=== PATIENT | female | born 1960 | race Caucasian/White ===

== ENCOUNTER → 2017-01-19 | Outpatient (CLI) | payer OTHER ==
--- NOTE | 2017-01-20 11:31 | MM ---
Reason for exam: screening (asymptomatic). Last mammogram was performed 1 year ago. History: Patient is postmenopausal. Family history of breast cancer in maternal aunt, breast cancer in sister at age 72, and breast cancer in cousin at age 55. Physical Findings: A clinical breast exam by your physician is recommended on an annual basis and results should be correlated with mammographic findings. MG 3D Screening Mammo W/Cad Bilateral CC and MLO view(s) were taken. Prior study comparison: January 16, 2016, bilateral MG 3d diag mammo w/cad [facility]. July 11, 2015, right breast MG diagnostic mammo RT w CAD. The breast tissue is heterogeneously dense. This may lower the sensitivity of mammography. There is chronic nodularity bilaterally. No significant changes when compared with prior studies. ASSESSMENT: Benign, BI-RAD 2 RECOMMENDATION: Routine screening mammogram of both breasts in 1 year.
== END | disposition home or self-care (01) ==
LOC: RADMAMWWP 07:08
PROVIDERS: ATTEND Family Medicine
DX: Z12.31 Encounter for screening mammogram for malignant neoplasm of breast (principal)
CPT/HCPCS: 77063; G0202

== ENCOUNTER → 2018-02-25 | Outpatient (CLI) | payer OTHER ==
--- NOTE | 2018-02-25 13:40 | US ---
EXAMINATION TYPE: US venous doppler duplex LE DATE OF EXAM: 02/25/2018 1:30 PM COMPARISON: NONE CLINICAL HISTORY: R60.0 Edema of Lower legs. Right calf pain x 6 months. History of recent plane tiffanie el. SIDE PERFORMED: Right TECHNIQUE: The lower extremity deep venous system is examined utilizing real time linear array sonog danii with graded compression, doppler sonography and color-flow sonography. VESSELS IMAGED: Common Femoral Vein Deep Femoral Vein Greater Saphenous Vein * Femoral Vein Popliteal Vein Small Saphenous Vein * Proximal Calf Veins (* superficial vessels) Right Leg: Negative for DVT Left Leg: Negative for DVT Grayscale, color doppler, spectral doppler imaging performed of the deep veins of the right lower ext remity. There is normal flow, compressibility, vascular waveforms. IMPRESSION: No ultrasound evidence for acute DVT in the right lower extremity.
== END | disposition home or self-care (01) ==
LOC: RADUSWWP 12:47
PROVIDERS: ATTEND Family Medicine
DX: R60.0 Localized edema (principal)
CPT/HCPCS: 93970

== ENCOUNTER 2018-03-02 17:22 | Emergency (ER) | payer OTHER ==
[2018-03-02 17:30] VITALS: RESP 18
[2018-03-02] MEDS ORDERED: Acetaminophen-Codeine 300-30mg TAB PO STA (17:43)
--- NOTE | 2018-03-02 17:50 | ED ---
General Adult HPI - General Chief complaint: Extremity Injury, Lower Stated complaint: rt knee injury Time Seen by Provider: 03/02/18 17:32 Source: patient, RN notes reviewed Mode of arrival: wheelchair Limitations: no limitations - History of Present Illness Initial comments: 57-year-old female presents to the emergency department for a chief complaint of right knee pain x 1 hour. Patient states she was standing on a chair to reach the upper counter when she went to lift her right leg and felt and heard a pop. Patient states she has had significant pain in the right knee since that time. Patient denies falling or hitting her head. Patient states she is unable to bear weight on the knee or flex or extend the knee without pain. Patient states she took 2 ibuprofen with minimal relief. Patient states she has had pain in the right lower extremity for the past 3-4 months and and no ultrasound was performed 5 days ago which ruled out a DVT. Patient states she also does have physical and all blood work was normal as per 5 days ago. This generalized pain in her right lower extremity has not worsened in the past week except for the pain in her anterior knee from today. Patient denies shortness of breath or chest pain. Patient states her ankle is also tender. - Related Data Previous Rx's Medication Instructions Recorded Acetaminophen-Codeine 300-30mg 1 tab PO Q8H PRN #10 tablet 03/02/18 [Tylenol #3] Allergies Allergy/AdvReac Type Severity Reaction Status Date / Time No Known Allergies Allergy Verified 03/02/18 17:31 Review of Systems ROS Statement: Those systems with pertinent positive or pertinent negative responses have been documented in the HPI. ROS Other: All systems not noted in ROS Statement are negative. Past Medical History Past Medical History: No Reported History History of Any Multi-Drug Resistant Organisms: None Reported Past Surgical History: Orthopedic Surgery Additional Past Surgical History / Comment(s): LT knee surgery Past Psychological History: No Psychological Hx Reported Smoking Status: Never smoker Past Alcohol Use History: Occasional Past Drug Use History: None Reported General Exam Limitations: no limitations Head exam: Present: atraumatic, normocephalic, normal inspection ENT exam: Present: normal exam, mucous membranes moist Respiratory exam: Present: normal lung sounds bilaterally. Absent: respiratory distress, wheezes, rales, rhonchi, stridor Cardiovascular Exam: Present: regular rate Extremities exam: Present: tenderness (Tenderness of the right lower extremity from knee to ankle.), normal capillary refill (less than 2 seconds in RLE), pedal edema (patient has 1+ bilat edema in LE.), other (Patient has full sensation and range of motion of the right foot. Patient has positive pedal pulses and posterior tibial pulses bilaterally with Doppler.). Absent: full ROM (Limited flexion and extension of the right knee.), joint swelling, calf tenderness Course Vital Signs 03/02/18 03/02/18 17:31 18:48 Temperature 98 F 98.1 F Pulse Rate 86 61 Respiratory 18 18 Rate Blood Pressure 189/95 169/70 O2 Sat by Pulse 99 98 Oximetry Medical Decision Making - Medical Decision Making 57-year-old female presents the emergency department with a chief complaint of right knee pain. Patient injured the knee earlier today when she stepped onto a chair and felt a pop in the right knee. Patient had a negative ultrasound for DVT last week because of generalized pain in the right lower extremity which has been ongoing for months. Patient states the pain in her right lower extremity is no worse than it was last week besides for the pain in her anterior knee joint from the injury today. She has taken ibuprofen today which helped minimally. Patient was given a Tylenol 3 in the emergency department which did help her feel better. X-ray of the right ankle shows soft tissue swelling with no evidence of acute fracture or dislocation. X-ray of the right knee demonstrates no acute fracture or dislocation. Discussed ordering an ultrasound to rule out DVT with patient. Due to negative ultrasound 5 days ago and no exacerbation of pain or swelling besides from the pop in the knee joint today patient will return if pain/swelling increases in the RLE for ultrasound. Patient will follow up with orthopedics in one to 2 days. She will also follow up with primary care. 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 She will return to the emergency Department if she notices a worsening of symptoms. Disposition Clinical Impression: Knee pain, acute Disposition: HOME SELF-CARE Condition: Good Instructions: Knee Pain (ED), RICE Therapy (ED) Additional Instructions: Please take ibuprofen and Tylenol for pain relief. Please use rice therapy as discussed. Instructions are included in the discharge paperwork. Please follow -up with orthopedics in one to 2 days. Please follow up with primary care as well. Prescriptions: Acetaminophen-Codeine 300-30mg [Tylenol #3] 1 tab PO Q8H PRN #10 tablet PRN Reason: Pain Referrals: Martin Yanez MD [Primary Care Provider] - 1-2 days Bárbara Helton PAC [PHYSICIAN SYNTHETIC STAPLE EXTRUDER] - 1-2 days Time of Disposition: 18:48
--- NOTE | 2018-03-02 18:23 | XR ---
EXAMINATION TYPE: XR knee complete RT DATE OF EXAM: 03/02/2018 CLINICAL HISTORY: Right knee pain TECHNIQUE: Three views of the right knee are obtained. COMPARISON: None. FINDINGS: There is no acute fracture/dislocation evident in right knee. Minimal medial compartment j oint space narrowing is noted. Small ossified is seen near the tibial spine. The bicompartmental join t spaces appear within normal limits. The overlying soft tissue appears unremarkable. IMPRESSION: There is no acute fracture or dislocation in the right knee.
--- NOTE | 2018-03-02 18:25 | XR ---
EXAMINATION TYPE: XR ankle complete RT DATE OF EXAM: 03/02/2018 CLINICAL HISTORY: Right ankle pain TECHNIQUE: Frontal, lateral and oblique images of the right ankle are obtained. COMPARISON: None. FINDINGS: There is soft tissue swelling over the ankle most pronounced over the lateral malleolus. T here is no acute fracture/dislocation evident in the right ankle. The ankle mortise appears within n ormal limits. Small Achilles and plantar enthesophytes are noted. IMPRESSION: Diffuse soft tissue swelling of the right ankle most pronounced over the lateral malleolu s with no evidence of acute fracture or dislocation.
[2018-03-02 18:49] VITALS: BP 169/70; PULSE 61; TEMP 98.1
== END 2018-03-02 19:05 | disposition home or self-care (01) ==
LOC: EC 17:22
DX: M25.561 Pain in right knee (principal); M25.571 Pain in right ankle and joints of right foot
CPT/HCPCS: 99284

== ENCOUNTER → 2018-10-20 | Outpatient (CLI) | payer OTHER ==
[2018-10-20 16:50] LABS: Albumin 4.2 g/dL (3.80-4.90); Albumin/Globulin Ratio 1.91 (1.20-2.10); Anion Gap 6.1 mmol/L (4.00-12.00); Calcium 9.4 mg/dL (8.7-10.3); Carbon Dioxide 28.9 mmol/L (21.6-31.8); Globulin 2.2 g/dL (2.1-3.7); Potassium 4.5 mmol/L (3.5-5.5); Total Bilirubin 0.8 mg/dL (0.2-1.2); Total Protein 6.4 g/dL (6.2-8.2)
[2018-10-20 16:57] LABS: T4, Free (Free Thyroxine) 1.2 ng/dL (0.80-1.80)
== END ==
LOC: LABWHC1 08:04
PROVIDERS: ATTEND Nurse Practitioner Adult Health
DX: Z00.00 Encounter for general adult medical examination without abnormal findings (principal)
CPT/HCPCS: 36415; 80053; 80061; 84439; 84443

== ENCOUNTER → 2018-11-22 | Outpatient (CLI) | payer OTHER ==
--- NOTE | 2018-11-25 11:09 | MM ---
Reason for exam: screening (asymptomatic). Last mammogram was performed 1 year and 10 months ago. History: Patient is postmenopausal and has history of other cancer at age 58. Family history of breast cancer in maternal aunt, breast cancer in sister at age 72, and breast cancer in cousin at age 55. Physical Findings: A clinical breast exam by your physician is recommended on an annual basis and results should be correlated with mammographic findings. MG Screening Mammo w CAD Bilateral CC and MLO view(s) were taken. Prior study comparison: January 19, 2017, bilateral MG 3d screening mammo w/cad. January 16, 2016, bilateral MG 3d diag mammo w/cad [facility]. Finding: There is a 11 mm circumscribed oval mass in the upper outer quadrant, anterior position of the left breast. New finding and more defined. ASSESSMENT: Incomplete: need additional imaging evaluation, BI-RAD 0 RECOMMENDATION: Ultrasound of the left breast. [facility] will attempt to contact patient to return for ultrasound.
== END | disposition home or self-care (01) ==
LOC: RADMAMWWP 09:39
PROVIDERS: ATTEND Family Medicine
DX: Z12.31 Encounter for screening mammogram for malignant neoplasm of breast (principal)
CPT/HCPCS: 77067

== ENCOUNTER → 2018-12-09 | Outpatient (CLI) | payer OTHER ==
--- NOTE | 2018-12-12 07:20 | USB ---
Reason for exam: additional evaluation requested from abnormal screening. History: Patient is postmenopausal and has history of other cancer at age 58. Family history of breast cancer in maternal aunt, breast cancer in sister at age 72, and breast cancer in cousin at age 55. Physical Findings: Nurse did not find any significant physical abnormalities on exam. US Breast Workup Limited LT Left limited breast ultrasound including focal area of concern, retroareolar and axilla demonstrates a 11 x 5 x 12 mm lobular well circumscribed cystic lesion at 1 o'clock. These results were verbally communicated with the patient and result sheet given to the patient on 12/09/18. ASSESSMENT: Probably benign, BI-RAD 3 RECOMMENDATION: Follow-up diagnostic mammogram and ultrasound of the left breast in 6 months.
== END | disposition home or self-care (01) ==
LOC: RADUSWWP 09:36
PROVIDERS: ATTEND Family Medicine
DX: R92.8 Other abnormal and inconclusive findings on diagnostic imaging of breast (principal)

== ENCOUNTER → 2019-08-29 | Outpatient (CLI) | payer OTHER ==
--- NOTE | 2019-08-29 10:47 | MM ---
Reason for exam: follow-up at short interval from prior study. Last mammogram was performed 9 months ago. History: Patient is postmenopausal and has history of other cancer at age 58. Family history of breast cancer in maternal aunt, breast cancer in sister at age 72, and breast cancer in cousin at age 55. Physical Findings: Nurse did not find any significant physical abnormalities on exam. MG Diagnostic Mammo LT w CAD CC and MLO view(s) were taken of the left breast. Prior study comparison: November 22, 2018, bilateral MG screening mammo w CAD. January 19, 2017, bilateral MG 3d screening mammo w/cad. The breast tissue is heterogeneously dense. This may lower the sensitivity of mammography. Finding: There is a typically benign circumscribed round oval masses at middle depth of the left breast, similar to priors back to 2016. Ultrasound is ordered as a follow up exam. No new suspicious abnormality. These results were verbally communicated with the patient and result sheet given to the patient on 08/29/19. ASSESSMENT: Benign, BI-RAD 2 RECOMMENDATION: Routine screening mammogram of both breasts in 1 year.
--- NOTE | 2019-08-29 10:50 | USB ---
Reason for exam: follow-up at short interval from prior study. History: Patient is postmenopausal and has history of other cancer at age 58. Family history of breast cancer in maternal aunt, breast cancer in sister at age 72, and breast cancer in cousin at age 55. US Breast Limited LT Left limited breast ultrasound including focal area of concern, retroareolar and axilla demonstrates a 11 x 4 x 9mm lobular, cystic lesion at 1 o'clock, benign, correspond to the mammographic finding, a 5 x 3 x 4mm oval, hypoechoic lesion at 3 o'clock, 6 month follow up recommended, a 3 x 3 x 3mm oval, hypoechoic lesion at 3 o'clock, 6 month follow up recommended and a 7 x 3 x 7mm oval, solid, isoechoic lesion at 12 o'clock, 6 month follow up recommended. Scanned 12-3 o'clock. These results were verbally communicated with the patient and result sheet given to the patient on 08/29/19. ASSESSMENT: Probably benign, BI-RAD 3 RECOMMENDATION: Ultrasound of the left breast in 6 months.
== END | disposition home or self-care (01) ==
LOC: RADMAMWWP 08:53
PROVIDERS: ATTEND Family Medicine
DX: R92.8 Other abnormal and inconclusive findings on diagnostic imaging of breast (principal)
CPT/HCPCS: 77065

== ENCOUNTER → 2019-09-14 | Outpatient (CLI) | payer OTHER ==
--- NOTE | 2019-09-14 08:22 | US ---
EXAMINATION TYPE: US transvaginal DATE OF EXAM: 09/14/2019 COMPARISON: NONE CLINICAL HISTORY: D25.9 uterine leiomyoma. History uterine fibroids, patient states no recent pelvic pain or bleeding, 3, para 3, history of tubal ligation. TECHNIQUE: Transvaginal exam only per ordering physician. Date of LMP: 15 years ago EXAM MEASUREMENTS: Uterus: 6.8 x 2.8 x 4.0 cm Endometrial Stripe: 0.3 cm Right Ovary: not seen Left Ovary: not seen 1. Uterus: heterogeneous with 1.8 x 1.6 x 1.8cm hypoechoic area, probable fibroid 2. Endometrium: visualized portions appear wnl 3. Right Ovary: not seen 4. Left Ovary: not seen 5. Bilateral Adnexa: wnl 6. Posterior cul-de-sac: wnl IMPRESSION: 1. Suspected uterine fibroid.
== END | disposition home or self-care (01) ==
LOC: RADUSWWP 07:37
PROVIDERS: ATTEND Nurse Practitioner Adult Health
DX: D25.9 Leiomyoma of uterus, unspecified (principal); Z80.49 Family history of malignant neoplasm of other genital organs
CPT/HCPCS: 76830; 86304

== ENCOUNTER → 2019-11-25 | Outpatient (CLI) | payer OTHER ==
--- NOTE | 2019-11-25 11:43 | MM ---
Reason for exam: additional evaluation requested from prior study. Last mammogram was performed 3 months ago. History: Patient is postmenopausal and has history of other cancer at age 58. Family history of breast cancer in maternal aunt, breast cancer in sister at age 72, and breast cancer in cousin at age 55. Physical Findings: Nurse did not find any significant physical abnormalities on exam. MG Diagnostic Mammo w CAD [facility] Bilateral CC and MLO view(s) were taken. Prior study comparison: August 29, 2019, left breast MG diagnostic mammo LT w CAD. November 22, 2018, bilateral MG screening mammo w CAD. The breast tissue is heterogeneously dense. This may lower the sensitivity of mammography. There is chronic nodularity in the right breast. There is no discrete abnormality. These results were verbally communicated with the patient and result sheet given to the patient on 11/25/19. ASSESSMENT: Benign, BI-RAD 2 RECOMMENDATION: Routine screening mammogram of both breasts in 1 year.
== END | disposition home or self-care (01) ==
LOC: RADMAMWWP 10:57
PROVIDERS: ATTEND Family Medicine
DX: R92.8 Other abnormal and inconclusive findings on diagnostic imaging of breast (principal)
CPT/HCPCS: 77066

== ENCOUNTER → 2021-01-08 | Outpatient (CLI) | payer OTHER ==
--- NOTE | 2021-01-08 13:27 | ECHOF ---
Referral Reason:R01.1 cardiac murmur MEASUREMENTS -------- HEIGHT: 162.6 cm WEIGHT: 94.8 kg BP: RVIDd: 2.9 cm (< 3.3) IVSd: 1.1 cm (0.6 - 1.1) LVIDd: 3.9 cm (3.9 - 5.3) LVPWd: 1.7 cm (0.6 - 1.1) IVSs: 1.5 cm LVIDs: 2.7 cm LVPWs: 1.5 cm LA Diam: 4.2 cm (2.7 - 3.8) LAESV Index (A-L): 28.41 ml/m Ao Diam: 3.0 cm (2.0 - 3.7) MV EXCURSION: 16.312 mm (> 18.000) MV EF SLOPE: 91 mm/s (70 - 150) EPSS: 0.3 cm MV E Virgil: 0.50 m/s MV DecT: 293 ms MV A Virgil: 0.80 m/s MV E/A Ratio: 0.62 RAP: 5.00 mmHg RVSP: 16.53 mmHg FINDINGS -------- Sinus rhythm. This was a technically adequate study. The left ventricular size is normal. Left ventricular wall thickness is normal. Overall left vent ricular systolic function is normal with, an EF between 55 - 60 %. The right ventricle is normal in size. Normal LA size by volume 22+/-6 ml/m2. The right atrial size is normal. The aortic valve is trileaflet, and appears structurally normal. No aortic stenosis or regurgitation. The mitral valve is normal. Mild mitral regurgitation is present. The tricuspid valve appears structurally normal. Mild tricuspid regurgitation present. Right vent ricular systolic pressure is normal at < 35 mmHg. There is no pulmonic regurgitation present. The aortic root size is normal. There is no pericardial effusion. CONCLUSIONS -------- 1. Left ventricular wall thickness is normal. 2. Overall left ventricular systolic function is normal with, an EF between 55 - 60 %. 3. Normal LA size by volume 22+/-6 ml/m2. 4. The aortic valve is trileaflet, and appears structurally normal. No aortic stenosis or regurgitati on. 5. Mild mitral regurgitation is present. 6. Mild tricuspid regurgitation present. 7. There is no pericardial effusion. X RAY NURSE: Little Cohen RDCS
== END | disposition home or self-care (01) ==
LOC: RADECHMAIN 10:45
PROVIDERS: ATTEND Family Medicine
DX: I08.1 Rheumatic disorders of both mitral and tricuspid valves (principal)
CPT/HCPCS: 93306

== ENCOUNTER 2021-01-25 10:16 | Day surgery (SDC) | payer OTHER ==
[2021-01-23 12:02] VITALS: BMI 36.0
[~2021-01-25 10:16] MED LIST: LACTATED RINGERS 1,000 ML IV SCH
[2021-01-25 11:02] VITALS: TEMP 98
[2021-01-25] MEDS ORDERED: LIDOCAINE 1% (10MG/ML) FOR IV START INTRADERMA ONE (11:03)
[2021-01-25] MEDS ORDERED: PROPOFOL 10 MG/ML 20 ML VIAL IV ONE (11:11)
[2021-01-25] MEDS ORDERED: LIDOCAINE 1% INJ 10MG/ML (20 ML MDV) ONE (11:11)
--- NOTE | 2021-01-25 11:24 | P.PCN ---
Date of Procedure: 01/25/21 Procedure(s) Performed: BRIEF HISTORY: Patient is a 60-year-old pleasant white female scheduled for an elective colonoscopy as a part of evaluation of prior history of colon polyps. Last colonoscopy was 8 years ago. PROCEDURE PERFORMED: Colonoscopy. PREOPERATIVE DIAGNOSIS: History of colon polyps. IV sedation per Anesthesia. PROCEDURE: After informed consent was obtained, the patient, was brought into the endoscopy unit. IV sedation was administered by Anesthesia under continuous monitoring. Digital rectal examination was normal. Initially the Olympus CF-160 flexible video colonoscope was then inserted in the rectum, gradually advanced into the cecum without any difficulty. Careful examination was performed as the scope was gradually being withdrawn. Ileocecal valve and the appendiceal orifice were visualized and appeared normal. Prep was excellent. Mucosa of the cecum, ascending colon, transverse colon, descending colon, sigmoid colon, and rectum appeared normal. Scattered sigmoid diverticulosis. Retroflexion was performed in the rectum and no lesions were seen. The patient tolerated the procedure well. IMPRESSION: Normal-appearing colon from rectum to cecum no evidence of colorectal neoplasia . Scattered sigmoid diverticulosis. RECOMMENDATIONS: Findings of this examination were discussed with the patient as well as her family. She was advised to have a repeat screening colonoscopy in 10 years..
[2021-01-25 11:30] VITALS: RESP 16
[2021-01-25 11:41] VITALS: BP 141/82; PULSE 59
== END 2021-01-25 11:50 | disposition home or self-care (01) ==
LOC: ORWHC2ENDO 10:16
PROVIDERS: ATTEND Internal Medicine Gastroenterology
DX: Z12.11 Encounter for screening for malignant neoplasm of colon (principal); K57.30 Diverticulosis of large intestine without perforation or abscess without bleeding; Z86.010 Personal history of colon polyps; J45.909 Unspecified asthma, uncomplicated; E07.9 Disorder of thyroid, unspecified; K21.9 Gastro-esophageal reflux disease without esophagitis; Z79.890 Hormone replacement therapy; Z79.899 Other long term (current) drug therapy; Z88.0 Allergy status to penicillin
CPT/HCPCS: G0105; J2001; J2704; 45378

== ENCOUNTER → 2021-10-23 | Outpatient (CLI) | payer OTHER ==
[~2021-10-23] MED LIST changes: +BAMLANIVIMAB (EUA) 700 MG, ETESEVIMAB (EUA) 1,400 MG in SODIUM CHLORIDE 0.9% 50 ML IVPB ONE; -LACTATED RINGERS 1,000 ML IV SCH; +SODIUM CHLORIDE 0.9% 50 ML IVPB ONE; +SODIUM CHLORIDE 0.9% 500 ML 500 ML in EMPTY BAG 1 BAG IV PRN
[2021-10-23 10:42] VITALS: RESP 16
[2021-10-23 11:46] VITALS: BP 130/81; PULSE 59; TEMP 98.1
== END | disposition home or self-care (01) ==
LOC: PROCWHC3 09:53
PROVIDERS: ATTEND Nurse Practitioner Adult Health
DX: U07.1 COVID-19 (principal)
CPT/HCPCS: 96360; J3490; M0245

== ENCOUNTER → 2023-08-10 | Outpatient (CLI) | payer OTHER ==
--- NOTE | 2023-08-11 22:37 | MM ---
Reason for Exam: Screening (asymptomatic). Last mammogram was performed 3 year(s) and 9 month(s) ago. Patient History: Menarche at age 13. First Full-Term at age 27. Postmenopausal. Patient has history of breast feeding. Maternal cousin had breast cancer, age 55. Maternal aunt had breast cancer. Sister had breast cancer, age 72. Risk Values: Hillary 5 year model risk: 3.1%. NCI Lifetime model risk: 12.8%. Prior Study Comparison: 11/22/2018 Bilateral Screening Mammogram, [facility]. 08/29/2019 Left Diagnostic Mammogram, [facility]. 11/25/2019 Bilateral Diagnostic Mammogram, [facility]. Tissue Density: There are scattered fibroglandular densities. Findings: Analyzed By CAD. Bilateral chronic nodularity redemonstrated. Unchanged asymmetric density laterally in the left breast. There is no suspicious group of microcalcifications or new suspicious mass in either breast. Overall Assessment: Benign, BI-RAD 2 Management: Screening Mammogram of both breasts in 1 year. See note below in regards to patient's increased 5 year Hillary score. Patient should continue monthly self-breast exams. A clinical breast exam by your physician is recommended on an annual basis. This exam should not preclude additional follow-up of suspicious palpable abnormalities. Note on Hillary scores and lifetime risk: 1. A Hillary score greater than 3% is considered moderate risk. If this is the case, consider specialist referral to assess eligibility for a risk reducing agent. 2. If overall lifetime risk for the development of breast cancer is 20% or higher, the patient may qualify for future screening with alternating mammogram and breast MRI. Electronically signed and approved by: Daniela Lin M.D. Radiologist
== END | disposition home or self-care (01) ==
LOC: RADMAMWWP 13:35
PROVIDERS: ATTEND Family Medicine
DX: Z12.31 Encounter for screening mammogram for malignant neoplasm of breast (principal); Z78.0 Asymptomatic menopausal state; Z80.3 Family history of malignant neoplasm of breast
CPT/HCPCS: 77063; 77067

== ENCOUNTER → 2024-11-28 | Outpatient (CLI) | payer BC ==
--- NOTE | 2024-11-28 23:48 | US ---
EXAMINATION TYPE: US pelvis complete transvag DATE OF EXAM: 11/28/2024 COMPARISON: US TV(09/14/2019) CLINICAL INDICATION: Female, 64 years old with history of R10.2 PELVIC AND PERINEAL PAIN; TECHNIQUE: . Transabdominal grayscale sonographic images of the pelvis were acquired. Transvaginal sonographic im ages were medically necessary to better assess the following anatomy: Doppler imaging: Not performed. FINDINGS: EXAM MEASUREMENTS: Uterus: 8.4x2.4x4.6 cm Endometrial Stripe: 0.3 cm Right Ovary: Not visualized due to bowel gas. Left Ovary: Not visualized due to bowel gas. Very limited exam due to pt unable to completely empty bladder for TV exam, Transabdominal exam limit ed due to overlying bowel and pt body habitus 1. Uterus: Anteverted wnl Unable to visualize prior fibroid due to overlying bowel and pt unable to empty bladder completely fo r TV CX: Hyperechoic area seen within CX: 0.3x0.2x0.3cm Fluid also seen within CX 2. Endometrium: wnl 3. Right Ovary: Obscured by overlying bowel gas 4. Left Ovary: Obscured by overlying bowel gas 5. Bilateral Adnexa: wnl 6. Posterior cul-de-sac: wnl IMPRESSION: 1. No suspicious acute changes evident. [facility], , 11/28/2024 11:46 PM
== END | disposition home or self-care (01) ==
LOC: RADUSWWP 09:25
PROVIDERS: ATTEND Family Medicine
DX: R10.2 Pelvic and perineal pain (principal)
CPT/HCPCS: 76830; 76856

== ENCOUNTER → 2024-11-28 | Outpatient (CLI) | payer BC ==
--- NOTE | 2024-12-02 19:30 | MM ---
Reason for Exam: Screening (asymptomatic). Last mammogram was performed 1 year(s) and 3 month(s) ago. Patient History: Menarche at age 13. First Full-Term at age 27. Postmenopausal. Patient has history of breast feeding. Maternal cousin had breast cancer, age 55. Maternal aunt had breast cancer. Sister had breast cancer, age 72. Sister (Moon) had breast cancer, bilateral, age 66. Sister (Moon) tested for BRCA1 outcome was negative. Sister (Moon) tested for BRCA2 outcome was negative. Risk Values: Maria C 5 year model risk: 5.6%. NCI Lifetime model risk: 20.8%. Prior Study Comparison: 08/29/2019 Left Diagnostic Mammogram, [facility]. 11/25/2019 Bilateral Diagnostic Mammogram, [facility]. 08/10/2023 Bilateral MG 3D screening mammo w/cad, [facility]. Tissue Density: There are scattered areas of fibroglandular density. Findings: Analyzed By CAD. Unchanged bilateral areas of asymmetric density. Unchanged prominent low axillary tail lymph node on the right. There is no suspicious group of microcalcifications or new suspicious mass in either breast. Overall Assessment: Benign, BI-RAD 2 Management: Screening Mammogram of both breasts in 1 year. SEE NOTE BELOW IN REGARDS TO THE PATIENT'S INCREASED 5 YEAR MARIA C SCORE AND INCREASED LIFETIME RISK SCORE. Patient should continue monthly self-breast exams. A clinical breast exam by your physician is recommended on an annual basis. This exam should not preclude additional follow-up of suspicious palpable abnormalities. Note on Maria C scores and lifetime risk: 1. A Maria C score greater than 3% is considered moderate risk. If this is the case, consider specialist referral to assess eligibility for a risk reducing agent. 2. If overall lifetime risk for the development of breast cancer is 20% or higher, the patient may qualify for future screening with alternating mammogram and breast MRI. [facility], , 12/02/2024 6:49 PM. Electronically signed and approved by: Daniela Lin M.D. Radiologist
== END | disposition home or self-care (01) ==
LOC: RADMAMWWP 09:23
PROVIDERS: ATTEND Family Medicine
DX: Z12.31 Encounter for screening mammogram for malignant neoplasm of breast (principal); Z78.0 Asymptomatic menopausal state; Z80.3 Family history of malignant neoplasm of breast; R92.323 Mammographic fibroglandular density, bilateral breasts
CPT/HCPCS: 77063; 77067